=== PATIENT | female | born 1980 | race Caucasian/White ===

== ENCOUNTER 2019-04-24 11:36 | Emergency (ER) | payer OTHER ==
[~2019-04-24] VITALS: Ht 165.1 cm; Wt 106.6 kg
--- NOTE | 2019-04-24 12:40 | PHYS DOC ---
Past Medical History Past Medical History: Seizure Past Surgical History: Cholecystectomy, Hysterectomy, Other Additional Past Surgical Histo: BACK X2 LAST SURGERY 3 1/2 MONTHS AGO Alcohol Use: Rarely Drug Use: None Adult General Chief Complaint Chief Complaint: FLANK PAIN HPI HPI Patient is a 38 year old female who presents with flank pain has been ongoing for 10 days. The patient states she went to an urgent care on Saturday but is still been having the pain. The patient states that she has associated symptoms of nausea. His been taking Toradol at home which he says is not helping. She's been taking Toradol for last 2 days last dose was at 1120. The patient states that her pain is 10 out of 10 in severity. Review of Systems Review of Systems Constitutional: Denies fever or chills [] Eyes: Denies change in visual acuity, redness, or eye pain [] HENT: Denies nasal congestion or sore throat [] Respiratory: Denies cough or shortness of breath [] Cardiovascular: No additional information not addressed in HPI [] GI: Reports R flank pain and nausea Denies vomiting, bloody stools or diarrhea [] : Denies dysuria or hematuria [] Musculoskeletal: Reports back pain Integument: Denies rash or skin lesions [] Neurologic: Denies headache, focal weakness or sensory changes [] Complete systems were reviewed and found to be within normal limits, except as documented in this note. Current Medications Current Medications Current Medications Medications (Trade) Dose Ordered Sig/[facility] Start Time Stop Time Status Last Admin Dose Admin Fentanyl Citrate (Fentanyl 2ml Vial) 75 mcg 1X ONCE 04/24/19 14:30 04/24/19 14:31 Ondansetron HCl (Zofran) 4 mg 1X ONCE 04/24/19 12:45 04/24/19 12:46 DC 04/24/19 13:13 4 MG Sodium Chloride 1,000 ml @ 1,000 mls/hr 1X ONCE 04/24/19 12:45 04/24/19 13:44 DC 04/24/19 13:12 1,000 MLS/HR Tamsulosin HCl (Flomax) 0.4 mg 1X ONCE 04/24/19 14:30 04/24/19 14:31 Allergies Allergies Allergies Coded Allergies Type Severity Reaction Last Updated Verified acetaminophen Allergy Intermediate vomitin 04/11/16 Yes doxycycline Allergy Intermediate unknown 04/11/16 Yes hydrocodone Allergy Intermediate vomitin 04/11/16 Yes morphine Allergy Intermediate hives 04/11/16 Yes prochlorperazine Allergy Intermediate dystonia 04/11/16 Yes promethazine Allergy Intermediate dystonia 04/11/16 Yes sulfamethoxazole Allergy Intermediate diarrhea 04/11/16 Yes trimethoprim Allergy Intermediate diarrhea 04/11/16 Yes Physical Exam Physical Exam Constitutional: Well developed, well nourished, no acute distress, non-toxic appearance. [] HENT: Normocephalic, atraumatic, bilateral external ears normal, oropharynx moist, no oral exudates, nose normal. [] Eyes: PERRLA, EOMI, conjunctiva normal, no discharge. [] Neck: Normal range of motion, no tenderness, supple, no stridor. [] Cardiovascular:Heart rate regular rhythm, no murmur [] Lungs & Thorax: Bilateral breath sounds clear to auscultation [] Abdomen: Bowel sounds normal, soft, tenderness RLQ, no masses, no pulsatile masses. [] Skin: Warm, dry, no erythema, no rash. [] Back: Tenderness, has CVA tenderness. [] Extremities: No tenderness, no cyanosis, no clubbing, ROM intact, no edema. [] Neurologic: Alert and oriented X 3, normal motor function, normal sensory function, no focal deficits noted. [] Psychologic: Affect normal, judgement normal, mood normal. [] Current Patient Data Vital Signs Vital Signs Date Time Temp Pulse Resp B/P (MAP) Pulse Ox O2 Delivery O2 Flow Rate FiO2 04/24/19 12:21 98.1 69 16 163/93 (116) 98 Room Air 98.1 Lab Values Laboratory Tests Test 04/24/19 12:03 04/24/19 12:13 04/24/19 13:00 Urine Collection Type Unknown Urine Color Yellow Urine Clarity Clear Urine pH 6.5 Urine Specific [place] 1.020 Urine Protein Negative mg/dL (NEG-TRACE) Urine Glucose (UA) Negative mg/dL (NEG) Urine Ketones (Stick) Trace mg/dL (NEG) Urine Blood Large (NEG) Urine Nitrite Negative (NEG) Urine Bilirubin Negative (NEG) Urine Urobilinogen Dipstick 0.2 mg/dL (0.2 mg/dL) Urine Leukocyte Esterase Negative (NEG) Urine RBC Tntc /HPF (0-2) Urine WBC 0 /HPF (0-4) Urine Squamous Epithelial Cells Few /LPF Urine Bacteria 0 /HPF (0-FEW) POC Urine HCG, Qualitative Hcg negative (Negative) White Blood Count 6.3 x10^3/uL (4.0-11.0) Red Blood Count 4.99 x10^6/uL (3.50-5.40) Hemoglobin 13.9 g/dL (12.0-15.5) Hematocrit 41.4 % (36.0-47.0) Mean Corpuscular Volume 83 fL (79-100) Mean Corpuscular Hemoglobin 28 pg (25-35) Mean Corpuscular Hemoglobin Concent 34 g/dL (31-37) Red Cell Distribution Width 14.1 % (11.5-14.5) Platelet Count 320 x10^3/uL (140-400) Neutrophils (%) (Auto) 58 % (31-73) Lymphocytes (%) (Auto) 32 % (24-48) Monocytes (%) (Auto) 7 % (0-9) Eosinophils (%) (Auto) 2 % (0-3) Basophils (%) (Auto) 1 % (0-3) Neutrophils # (Auto) 3.7 x10^3/uL (1.8-7.7) Lymphocytes # (Auto) 2.0 x10^3/uL (1.0-4.8) Monocytes # (Auto) 0.5 x10^3/uL (0.0-1.1) Eosinophils # (Auto) 0.1 x10^3/uL (0.0-0.7) Basophils # (Auto) 0.1 x10^3/uL (0.0-0.2) Sodium Level 139 mmol/L (136-145) Potassium Level 3.9 mmol/L (3.5-5.1) Chloride Level 105 mmol/L (98-107) Carbon Dioxide Level 24 mmol/L (21-32) Anion Gap 10 (6-14) Blood Urea Nitrogen 8 mg/dL (7-20) Creatinine 0.8 mg/dL (0.6-1.0) Estimated GFR (Cockcroft-Gault) 81.2 BUN/Creatinine Ratio 10 (6-20) Glucose Level 89 mg/dL (70-99) Calcium Level 9.4 mg/dL (8.5-10.1) Total Bilirubin 0.4 mg/dL (0.2-1.0) Aspartate Amino Transferase (AST) 23 U/L (15-37) Alanine Aminotransferase (ALT) 30 U/L (14-59) Alkaline Phosphatase 82 U/L (46-116) Total Protein 7.4 g/dL (6.4-8.2) Albumin 3.7 g/dL (3.4-5.0) Albumin/Globulin Ratio 1.0 (1.0-1.7) Lipase 126 U/L (73-393) Laboratory Tests 04/24/19 13:00 Laboratory Tests 04/24/19 13:00 EKG EKG [] Radiology/Procedures Radiology/Procedures [] PATIENT: GAYATHRI BERNSTEIN ACCOUNT: [id number] : 1980 LOCATION: ER AGE: 38 SEX: F EXAM STATUS: REG ER ORD. PHYSICIAN: MONTRELL CAIN APRN REASON: R flank pain PROCEDURE: CT ABDOMEN PELVIS WO CONTRAST Examination: CT ABDOMEN PELVIS WO CONTRAST History: Right flank pain Comparison/Correlation: None Findings: Axial images of the abdomen and pelvis were obtained without contrast. Sagittal and coronal reformatted images were provided. Visualized lung bases are clear. Cholecystectomy noted. Liver, spleen, pancreas, and adrenal glands are unremarkable. Cholecystectomy noted. Appendix is normal. No bowel obstruction. No extraluminal gas. Small umbilical hernia contains omental fat. There is no radiopaque right collecting system calculus. Left renal superior pole calculus measuring 0.2 cm diameter is present. Punctate superior pole left renal calyceal calculus superiorly is also seen. At the left renal lower pole, there are 2 renal calyceal calculi with the larger of these measuring 0.2 cm diameter. Right extrarenal pelvis is present. No hydroureter. Urinary bladder is unremarkable. Uterus is atrophic or absent. Right adnexal follicles are small in size in physiologic in appearance. No enlarged abdominal or pelvic lymph nodes. No ascites or pelvic free fluid. No acute bony process but evaluation at the level of the pelvis is limited due to motion. There is disc space narrowing at L5-S1 with concentric disc bulge is noted. Bilateral laminectomy at L5 noted. Impression: Nonobstructive left renal calculi. Appendix is normal. Small physiologic-appearing adnexal follicles. PQRS Compliance Statement: One or more of the following individualized dose reduction techniques were utilized for this examination: 1. Automated exposure control 2. Adjustment of the mA and/or kV according to patient size 3. Use of iterative reconstruction technique Electronically signed by: Antonio Cali MD (04/24/2019 1:39 PM) [facility] Course & Med Decision Making Course & Med Decision Making Pertinent Labs and Imaging studies reviewed. (See chart for details) Will work up for kidney stone and pyelonephritis. Will get labs, urine, CT, and give supportive care. Patient is agreeable. Patient has kidney stone. Will give Flomax in ER and d/c home to follow up with Urology. Due to patient extensive allergies. Unable to give pain medication for patient at home. Patient is allergic to Tramadol, Codeine, and Morphine. Is already taking Toradol. Patient states that she can have oxycodone. Will write script. Dragon Disclaimer Dragon Disclaimer This electronic medical record was generated, in whole or in part, using a voice recognition dictation system. Departure Departure Impression: Primary Impression: Nephrolithiasis Disposition: HOME, SELF-CARE Condition: STABLE Referrals: MEREDITH DOWELL MD (PCP) KURTIS TAO MD Patient Instructions: Kidney Stones Additional Instructions: Thank you for visiting [facility]. We appreciate you trusting us with your care. If any additional problems come up don't hesitate to return to visit us. Please follow up with your primary care provider so they can plan additional care if needed and know about the problem that you had. If symptoms worsen come back to the Emergency Department. Any concerning symptoms that start such as chest pain, shortness of air, weakness or numbness on one side of the body, running high fevers or any other concerning symptoms return to the ER. Please fill your medications at any pharmacy and follow the prescription instructions. Please follow up with urology and your primary care for further management. Strain your urine and take stone to Urology. Scripts Oxycodone Hcl (OXYCODONE HCL) 5 Mg Capsule 5 MG PO PRN Q6HRS PRN for PAIN for 3 Days, #10 TAB 0 Refills Prov: MONTRELL CAIN APRN 04/24/19 Ondansetron (ONDANSETRON ODT) 4 Mg Tab.rapdis 1 TAB PO PRN Q6-8HRS PRN for NAUSEA, #16 TAB Prov: MONTRELL CAIN APRN 04/24/19 Tamsulosin Hcl (FLOMAX) 0.4 Mg Cap.er.24h 1 CAP PO DAILY, #30 CAP 11 Refills Prov: MONTRELL CAIN APRN 04/24/19 MONTRELL CAIN APRN Apr 24, 2019 12:40
[2019-04-24] MEDS ORDERED: ONDANSETRON PF 4 MG/2 ML VIAL. IV ONE (12:45)
[2019-04-24] MEDS ORDERED: fentaNYL PF VIAL 100 MCG/2 ML VIAL IV ONE ×2 (12:45→14:30)
[2019-04-24] MEDS ORDERED: IV NORMAL SALINE 1000ML BAG 1,000 ML IV ONE (12:45)
[2019-04-24 13:03] LABS: BILIRUBIN,URINE NEGATIVE (NEG); CLARITY,URINE CLEAR; COLOR,URINE YELLOW; NITRITE,URINE NEGATIVE (NEG); PH,URINE 6.5; PROTEIN,URINE NEGATIVE (NEG-TRACE); UROBILINOGEN,URINE 0.2 mg/dL (0.2 mg/dL)
[2019-04-24 13:16] LABS: BASO # 0.1 x10^3/uL (0.0-0.2); BASO % 1 % (0-3); EOS # 0.1 x10^3/uL (0.0-0.7); EOS % 2 % (0-3); HEMATOCRIT 41.4 % (36.0-47.0); HEMOGLOBIN 13.9 g/dL (12.0-15.5); LYMPH % 32 % (24-48); MEAN CORPUSCULAR HEMOGLOBIN 28 pg (25-35); MEAN CORPUSCULAR HGB CONC 34 g/dL (31-37); MEAN CORPUSCULAR VOLUME 83 fL (79-100); MONO # 0.5 x10^3/uL (0.0-1.1); MONO % 7 % (0-9); NEUT # 3.7 x10^3/uL (1.8-7.7); NEUT % 58 % (31-73); PLATELET COUNT 320 x10^3/uL (140-400); RED BLOOD COUNT 4.99 x10^6/uL (3.50-5.40); RED CELL DISTRIBUTION WIDTH 14.1 % (11.5-14.5); WHITE BLOOD COUNT 6.3 x10^3/uL (4.0-11.0)
[2019-04-24 13:19] LABS: BACTERIA,URINE 0 /HPF (0-FEW); RBC,URINE TNTC /HPF (0-2); SQUAMOUS EPITHELIAL CELL,UR FEW /LPF; WBC,URINE 0 /HPF (0-4)
[2019-04-24 13:32] LABS: CALCIUM 9.4 mg/dL (8.5-10.1); CREATININE 0.8 mg/dL (0.6-1.0); GFR 81.2; POTASSIUM 3.9 mmol/L (3.5-5.1)
[2019-04-24 13:36] LABS: ALBUMIN 3.7 g/dL (3.4-5.0); TOTAL BILIRUBIN 0.4 mg/dL (0.2-1.0); TOTAL PROTEIN 7.4 g/dL (6.4-8.2)
[2019-04-24 14:00] VITALS: BP 114/58
--- NOTE | 2019-04-24 14:02 | RAD ---
Examination: CT ABDOMEN PELVIS WO CONTRAST History: Right flank pain Comparison/Correlation: None Findings: Axial images of the abdomen and pelvis were obtained without contrast. Sagittal and coronal reformatted images were provided. Visualized lung bases are clear. Cholecystectomy noted. Liver, spleen, pancreas, and adrenal glands are unremarkable. Cholecystectomy noted. Appendix is normal. No bowel obstruction. No extraluminal gas. Small umbilical hernia contains omental fat. There is no radiopaque right collecting system calculus. Left renal superior pole calculus measuring 0.2 cm diameter is present. Punctate superior pole left renal calyceal calculus superiorly is also seen. At the left renal lower pole, there are 2 renal calyceal calculi with the larger of these measuring 0.2 cm diameter. Right extrarenal pelvis is present. No hydroureter. Urinary bladder is unremarkable. Uterus is atrophic or absent. Right adnexal follicles are small in size in physiologic in appearance. No enlarged abdominal or pelvic lymph nodes. No ascites or pelvic free fluid. No acute bony process but evaluation at the level of the pelvis is limited due to motion. There is disc space narrowing at L5-S1 with concentric disc bulge is noted. Bilateral laminectomy at L5 noted. Impression: Nonobstructive left renal calculi. Appendix is normal. Small physiologic-appearing adnexal follicles. PQRS Compliance Statement: One or more of the following individualized dose reduction techniques were utilized for this examination: 1. Automated exposure control 2. Adjustment of the mA and/or kV according to patient size 3. Use of iterative reconstruction technique Electronically signed by: Antonio Cali MD (04/24/2019 1:39 PM) [facility]
[2019-04-24] MEDS ORDERED: TAMS0.4C97 PO (14:20)
[2019-04-24] MEDS ORDERED: ONDA4TAB12 PO (14:20)
[2019-04-24] MEDS ORDERED: OXYC5CAP PO (14:26)
[2019-04-24] MEDS ORDERED: TAMSULOSIN 0.4 MG CAP.ER.24H. PO ONE (14:30)
== END 2019-04-24 14:35 | disposition home or self-care (01) ==
LOC: ER 11:36
DX: N20.0 Calculus of kidney (principal); R11.0 Nausea; Z90.49 Acquired absence of other specified parts of digestive tract; Z90.710 Acquired absence of both cervix and uterus; Z88.6 Allergy status to analgesic agent; Z88.5 Allergy status to narcotic agent; Z88.1 Allergy status to other antibiotic agents; Z88.2 Allergy status to sulfonamides; Z88.8 Allergy status to other drugs, medicaments and biological substances
CPT/HCPCS: 36415; 74176; 80053; 81001; 81025; 83690; 85025; 96374; 96375; 96376; 99285; J2405; J3010; J7030; 96361

== ENCOUNTER 2019-08-21 22:54 | Emergency (ER) | payer OTHER ==
[~2019-08-21] VITALS: Ht 165.1 cm; Wt 99.8 kg
[~2019-08-21 22:54] MED LIST: ONDA4TAB12 PO; OXYC5CAP PO; TAMS0.4C97 PO
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
[2019-08-21] MEDS ORDERED: fentaNYL PF VIAL 100 MCG/2 ML VIAL IVP ONE (23:45)
[2019-08-22 00:18] LABS: BILIRUBIN,URINE NEGATIVE (NEG); CLARITY,URINE CLOUDY; COLOR,URINE YELLOW; NITRITE,URINE NEGATIVE (NEG); PH,URINE 7.5; PROTEIN,URINE NEGATIVE (NEG-TRACE); UROBILINOGEN,URINE 0.2 mg/dL (0.2 mg/dL)
[2019-08-22 00:22] LABS: SQUAMOUS EPITHELIAL CELL,UR MOD /LPF
[2019-08-22 00:23] LABS: AMORPHOUS SEDIMENT,UR PRESENT /HPF; BACTERIA,URINE FEW /HPF (0-FEW); RBC,URINE 0 /HPF (0-2)
[2019-08-22 00:24] LABS: BARBITURATES NEG (NEG); BENZODIAZEPINES NEG (NEG); CANNABINOIDS NEG (NEG); COCAINE NEG (NEG); METHADONE NEG (NEG); OPIATES NEG (NEG); PHENCYCLIDINE NEG (NEG)
[2019-08-22 00:25] LABS: AMPHETAMINE/METHAMPHETAMINE NEG (NEG)
[2019-08-22 00:47] LABS: U PREG PATIENT NEGATIVE (NEG)
[2019-08-22] MEDS ORDERED: fentaNYL PF VIAL 100 MCG/2 ML VIAL IVP ONE ×2 (01:00→02:00)
[2019-08-22 01:30] VITALS: BP 144/64
--- NOTE | 2019-08-22 01:32 | RAD ---
CT lumbar spine without contrast. HISTORY: Pain, injury, post surgery. CT scan of the lumbar spine was done without contrast. There is a CT abdomen pelvis from April 24 for comparison. Adrenal glands are normal. There are multiple small calculi in the left kidney. There is no left hydronephrosis. There is no retroperitoneal adenopathy. Lumbar spine is in normal alignment. The T12-L1, L1-2, L2-3 and L3-4 discs are unremarkable without focal spinal stenosis or disc protrusion or foraminal stenosis. There is diffuse bulging of the disc with possible central protrusion at L4-5. There is mild spinal stenosis and lateral recess stenosis at L4-5. The patient had previous L5 laminectomy. There is no definite disc protrusion at L5-S1. There is mild postoperative scarring with loss of the normal fat in these spinal canal. There is not evidence of foraminal stenosis. There is disc space narrowing at L5-S1. There is no lumbar fracture. The disc bulging at L4-5 is mildly more prominent than noted on the CT study from April. Changes at L5-S1 are similar to the prior exam. IMPRESSION: 1. Disc bulging or disc protrusion at L4-5 with mild narrowing of the spinal canal and lateral recess narrowing. 2. Postoperative changes from laminectomy at L5. 3. Multiple intrarenal calculi left kidney. PQRS Compliance Statement: One or more of the following individualized dose reduction techniques were utilized for this examination: 1. Automated exposure control 2. Adjustment of the mA and/or kV according to patient size 3. Use of iterative reconstruction technique Electronically signed by: Alf Orellana MD (08/22/2019 1:29 AM) [facility]
[2019-08-22] MEDS ORDERED: METH4TAB2 PO (01:34)
[2019-08-22] MEDS ORDERED: GABA300C18 PO (01:34)
== END 2019-08-22 01:51 | disposition home or self-care (01) ==
LOC: ER 22:54
DX: G89.29 Other chronic pain (principal); M54.5 Low back pain; Z90.49 Acquired absence of other specified parts of digestive tract; Z98.890 Other specified postprocedural states; Z88.1 Allergy status to other antibiotic agents; Z88.5 Allergy status to narcotic agent; Z88.6 Allergy status to analgesic agent; Z88.2 Allergy status to sulfonamides; Z88.8 Allergy status to other drugs, medicaments and biological substances
CPT/HCPCS: 72131; 80307; 81001; 81025; 96374; 96376; 99284; J3010

== ENCOUNTER 2019-08-29 21:18 | Emergency (ER) | payer OTHER ==
[~2019-08-29] VITALS: Ht 167.6 cm; Wt 99.8 kg
[~2019-08-29 21:18] MED LIST changes: +GABA300C18 PO; +METH4TAB2 PO
--- NOTE | 2019-08-29 22:07 | PHYS DOC ---
Past Medical History Past Medical History: Seizure Past Surgical History: Cholecystectomy Additional Past Surgical Histo: lumbar spine surgery, left eye, right foot x 2 Alcohol Use: Rarely Drug Use: None Adult General Chief Complaint Chief Complaint: BACK PAIN - NO INJURY HPI HPI Patient is a 39 year old female that presents to the emergency Department for chronic back pain. The patient states that her percocet at home is not enough for her pain. Rates her pain 10 out of 10 in severity and sharp. She states that she is scheduled to have surgery due to a chronic L4-L5 issue. Review of Systems Review of Systems Constitutional: Denies fever or chills [] Eyes: Denies change in visual acuity, redness, or eye pain [] HENT: Denies nasal congestion or sore throat [] Respiratory: Denies cough or shortness of breath [] Cardiovascular: No additional information not addressed in HPI [] GI: Denies abdominal pain, nausea, vomiting, bloody stools or diarrhea [] : Denies dysuria or hematuria [] Musculoskeletal: Reports back pain or joint pain [] Integument: Denies rash or skin lesions [] Neurologic: Denies headache, focal weakness or sensory changes [] Complete systems were reviewed and found to be within normal limits, except as documented in this note. Allergies Allergies Allergies Coded Allergies Type Severity Reaction Last Updated Verified acetaminophen Allergy Intermediate vomitin 04/11/16 Yes doxycycline Allergy Intermediate unknown 04/11/16 Yes hydrocodone Allergy Intermediate vomitin 04/11/16 Yes morphine Allergy Intermediate hives 04/11/16 Yes prochlorperazine Allergy Intermediate dystonia 04/11/16 Yes promethazine Allergy Intermediate dystonia 04/11/16 Yes sulfamethoxazole Allergy Intermediate diarrhea 04/11/16 Yes trimethoprim Allergy Intermediate diarrhea 04/11/16 Yes Physical Exam Physical Exam Constitutional: Well developed, well nourished, no acute distress, non-toxic appearance. [] HENT: Normocephalic, atraumatic, bilateral external ears normal, oropharynx moist, no oral exudates, nose normal. [] Eyes: PERRLA, EOMI, conjunctiva normal, no discharge. [] Neck: Normal range of motion, no tenderness, supple, no stridor. [] Skin: Warm, dry, no erythema, no rash. [] Back: No tenderness, no CVA tenderness. [] Extremities: No tenderness, no cyanosis, no clubbing, ROM intact, no edema. [] Neurologic: Alert and oriented X 3, normal motor function, normal sensory function, no focal deficits noted. [] Psychologic: Affect normal, judgement normal, mood normal. [] EKG EKG [] Radiology/Procedures Radiology/Procedures [] Course & Med Decision Making Course & Med Decision Making Pertinent Labs and Imaging studies reviewed. (See chart for details) The patient has been seen multiple times in the ER for pain medicine and chronic pain. The patient has her pain management her primary care doctor and had a prescription written on August 17 for 14 days for her Percocets. The patient is on her th narcotic prescription for this year. The patient has a overdose risk score of 600 in [employer]. The patient was seen her last week and told that she needs to go to pain management and she has not done this. I discussed the risks of continuing to receive narcotics and discussed due to her history I am not willing to give her more pain medicine. I discussed that she needs to go through Pain Management, PCP, or Neurosurgery. I also discussed how we do not treat chronic pain in the ER. Dragon Disclaimer Dragon Disclaimer This electronic medical record was generated, in whole or in part, using a voice recognition dictation system. Departure Departure Impression: Primary Impression: Drug-seeking behavior Additional Impression: Back pain Disposition: 01 HOME, SELF-CARE Condition: STABLE Referrals: NO PCP (PCP) DOUGLAS WU MD Patient Instructions: Chronic Back Pain Additional Instructions: Thank you for visiting [facility]. We appreciate you trusting us with your care. If any additional problems come up don't hesitate to return to visit us. Please follow up with your primary care provider so they can plan additional care if needed and know about the problem that you had. If symptoms worsen come back to the Emergency Department. Any concerning symptoms that start such as chest pain, shortness of air, weakness or numbness on one side of the body, running high fevers or any other concerning symptoms return to the ER. Problem Qualifiers Additional Impression: Back pain Back pain location: low back pain Chronicity: chronic Back pain laterality: midline Sciatica presence: with sciatica Sciatica laterality: sciatica laterality unspecified Qualified Codes: M54.40 - Lumbago with sciatica, unspecified side; G89.29 - Other chronic pain MONTRELL CAIN APRN Aug 29, 2019 22:07
== END 2019-08-29 22:00 | disposition home or self-care (01) ==
LOC: ER 21:18
DX: G89.29 Other chronic pain (principal); M54.40 Lumbago with sciatica, unspecified side; Z76.5 Malingerer [conscious simulation]; Z90.49 Acquired absence of other specified parts of digestive tract; Z98.890 Other specified postprocedural states; Z88.1 Allergy status to other antibiotic agents; Z88.5 Allergy status to narcotic agent; Z88.2 Allergy status to sulfonamides; Z88.6 Allergy status to analgesic agent; Z88.8 Allergy status to other drugs, medicaments and biological substances
CPT/HCPCS: 99281